=== PATIENT | male | born 1960 | race Caucasian/White ===

== ENCOUNTER 2016-10-02 05:34 | Day surgery (SDC) | payer OTHER ==
[2016-09-27 10:47] VITALS: BMI 40.0
[~2016-10-02] VITALS: Ht 182.9 cm; Wt 133.2 kg
[~2016-10-02 05:34] MED LIST: ATOR-26 PO; ATV5 PO; BUSP30TA2 PO; CARB25TA16 PO; INSU1INJ32 SQ; LEVO75TA5 PO; LISI-729 PO; METF-383 PO; METO25TA3 PO; NVLGIPEN SQ; PARO40TA2 PO; SITA100T3 PO
[2016-10-02 05:50] VITALS: BP 162/87; PULSE 77; TEMP 36.7; O2SAT 96; Ht 182.9 cm; Wt 133.2 kg
[2016-10-02] MEDS ORDERED: CEFAZOLIN 3000 MG/65 ML D5W 65 ML IV SCH (06:00)
[2016-10-02] MEDS ORDERED: FENTANYL CITRATE INJ 50 MCG/1 ML 2 ML VIAL ONE (06:25)
[2016-10-02] MEDS ORDERED: MIDAZOLAM HCL 1 MG/ML 2ML VIAL ONE ×2 (06:25→07:11)
[2016-10-02] MEDS ORDERED: LIDOCAINE HCL 2% 2 ML VIAL (20MG/ML) ONE (06:25)
[2016-10-02] MEDS ORDERED: PROPOFOL IV EMULSION 10 MG/ML 20 ML VIAL IV ONE ×2 (06:25→07:34)
[2016-10-02] MEDS ORDERED: ROCURONIUM BROMIDE 10 MG/ML 5 ML VIAL ONE (06:25)
[2016-10-02] MEDS ORDERED: ONDANSETRON INJ 2 MG/ML 2 ML VIAL ONE (06:25)
[2016-10-02] MEDS ORDERED: EpHEDrine SULFATE INJ 50 MG/ML AMP IV PRN (06:30)
[2016-10-02] MEDS ORDERED: HYDROmorphone INJ 1 MG/ML SYR IV PRN (06:30)
[2016-10-02] MEDS ORDERED: ATROPINE SULFATE 0.1 MG/ML 5ML SYR IV PRN (06:30)
[2016-10-02] MEDS ORDERED: ONDANSETRON INJ 2 MG/ML 2 ML VIAL IV PRN ×2 (06:30→08:00)
[2016-10-02] MEDS ORDERED: FENTANYL CITRATE INJ 50 MCG/1 ML 2 ML VIAL IV PRN (06:30)
--- NOTE | 2016-10-02 06:57 | History & Physical Bridge Note ---
H&P Re-Evaluation Bridge Note: I have examined the patient, reviewed the History & Physical and in the interval since the performance of the History & Physical I have noted the following changes of clinical significance: No changes noted
[2016-10-02] MEDS ORDERED: BUPIVACAINE 0.5 % 5 MG/1 ML MPF 30ML VIAL ONE (07:04)
[2016-10-02] MEDS ORDERED: LIDOCAINE HCL 1% 20 ML VIAL ONE (07:04)
[2016-10-02] MEDS ORDERED: BACITRACIN OINT 15 GM TUBE ONE (07:44)
[2016-10-02 07:53] VITALS: BP 134/82; PULSE 78; TEMP 36.6; O2SAT 97
--- NOTE | 2016-10-02 07:54 | Discharge Instructions ---
Discharge Instructions Date of Service Oct 02, 2016. Admission Reason for Admission: Muscle Weakness Discharge Discharge Diagnosis / Problem: Muscle weakness Discharge Goals Goal(s): Decrease discomfort Activity Recommendations Activity Limitations: as noted below No strenuous activity for one week Walking and light activity is encouraged No heavy lifting or bending with legs for one week No submerging incision underwater for 2 weeks or until incision is healed . Instructions / Follow-Up Instructions / Follow-Up You may shower in 3 days, remove dressing and then shower. Sponge bath and wash hair in meantime Keep steri strips on incision for 10 days and then remove, they may fall off before that is okay You may take Extra Strength Tylenol or Ibuprofen as needed for pain Follow-up with Dr. Flores in 1 week, please call office at [phone] if you do not already have an appointment Current Hospital Diet Patient's current hospital diet: Discharge Diet Recommended Diet: Regular Diet Procedures Procedures Performed: Right Leg Muscle Biopsy Pending Studies Studies pending at discharge: no Medical Emergencies . Who to Call and When: Medical Emergencies: If at any time you feel your situation is an emergency, please call 911 immediately. . Non-Emergent Contact Non-Emergency issues call your: Primary Care Provider, Surgeon Call Non-Emergent contact if: you have a fever, temperature is above 101.5, your pain is not controlled, your pain is worsening, wound has increased drainage, wound has increased redness, wound has increased pain . "Provider Documentation" section prepared by Marissa Isaacs. . VTE Core Measure Inpt VTE Proph given/why not?: SCD's
--- NOTE | 2016-10-02 07:59 | [facility] Post Operative Brief Note ---
Immediate Operative Summary Operative Date Oct 02, 2016. Pre-Operative Diagnosis generalized muscle weakness Post-Operative Diagnosis generalized muscle weakness Procedure(s) Performed Right Leg Muscle Biopsy Surgeon Dr. Sarah Flores C Software Engineer Surgeon(s) Shanthi Isaacs PA-C Estimated Blood Loss 1ml Findings muscle edema Specimens A. Right Thigh Muscle Biopsy Drains none Anesthesia sedation + local Complication(s) None Disposition Recovery Room / PACU
[2016-10-02] MEDS ORDERED: ACETAMINOPHEN 325 MG TAB PO PRN (08:00)
[2016-10-02] MEDS ORDERED: IBUPROFEN 200 MG TAB PO PRN (08:00)
--- NOTE | 2016-10-02 08:16 | Anesthesiology Progress Note ---
Anesthesia Post Op Note Date & Time Oct 02, 2016 at 08:15 Vital Signs Pain Intensity: 0 Vital Signs Past 12 Hours Date Time Temp Pulse Resp B/P (MAP) Pulse Ox O2 Delivery O2 Flow Rate FiO2 10/02/16 07:53 36.6 78 18 134/82 97 Room Air 10/02/16 05:50 36.7 77 18 162/87 (112) 96 Room Air Notes Mental Status: alert / awake / arousable, participated in evaluation Pt Amnestic to Procedure: Yes Nausea / Vomiting: adequately controlled Pain: adequately controlled Airway Patency, RR, SpO2: stable & adequate BP & HR: stable & adequate Hydration State: stable & adequate Anesthetic Complications: no major complications apparent
[2016-10-02 08:23] VITALS: BP 135/81; PULSE 76; TEMP 36.8; O2SAT 97
[2016-10-02 08:53] VITALS: BP 148/84; PULSE 78; TEMP 37; O2SAT 96
[2016-10-03] MEDS ORDERED: CEFAZOLIN IV 2,000 MG/60 ML D5W IV ONE (06:00)
--- NOTE | 2016-10-11 12:24 | [facility] Operative Report ---
Operative Report Operative Date October 02, 2016. Pre-Operative Diagnosis generalized muscle weakness Post-Operative Diagnosis same Procedure(s) Performed right thigh muscle biopsy Surgeon Dr. Sarah Flores Tower Equipment Repairer Surgeon(s) Shanthi Isaacs PA-C Estimated Blood Loss 1ml Findings normal finding on thigh muscle Fluids 500ml Specimens A. Right Thigh Muscle Biopsy Drains none Anesthesia sedation + local Complication(s) None Disposition Recovery Room / PACU Indications patient is a 56 years old male who presents with muscle weakness, pt requests to do muscle biopsy, I talked to patient about benefits, risks and alternatives of the procedure, the risks- infection, bleeding, patient understood, he agrees with xiomara procedure, he signed consent, I answered all questions, Description of Procedure We bring patient to OR the put patien on superior position. Patient received a SCD on bilateral leg to prevent DVT, a 2gm ancef a prophylactic antibiotic was given, patient received conscious sedation by an anesthesiologist, the patient right side right upper leg was prep and dripped in normal fashion, injections of local anesthesia 1% lidocaine mixed with 0.5% Marcaine around half right upper leg, about a 2 cm incision was made. open a layer by layer, and open fascial layer, take down 1 cm the muscle, and the hemostasis was obtained, then using 2-0 suture to close the fascial layer. subcutaneous layer closed by using 2-0 Vicryl, and close skin by using 4-0 Vicryl, patient tolerated procedure well, all instrument needle, and sponge coorect time 2 at end of case, patient was transferred to recovery room in stable condition. after procedure I talked to patient family member about operative room finding and the procedure I did, they understood, I answered all questions. the specimen sent to pathology. I attest to the content of the Intraoperative Record and any orders documented therein. Any exceptions are noted below.
== END 2016-10-02 08:55 | disposition home or self-care (01) ==
LOC: C.ACU 05:34
PROVIDERS: ATTEND Surgery
DX: M62.81 Muscle weakness (generalized) (principal); E78.5 Hyperlipidemia, unspecified; E03.9 Hypothyroidism, unspecified; E11.29 Type 2 diabetes mellitus with other diabetic kidney complication; G47.30 Sleep apnea, unspecified; E66.01 Morbid (severe) obesity due to excess calories; F41.8 Other specified anxiety disorders; K21.9 Gastro-esophageal reflux disease without esophagitis; I10 Essential (primary) hypertension; Z79.4 Long term (current) use of insulin; Z79.899 Other long term (current) drug therapy; Z68.41 Body mass index [BMI] 40.0-44.9, adult